=== PATIENT | female | born 1990 | race Caucasian/White ===

== ENCOUNTER → 2018-12-21 | Outpatient (CLI) | payer BC ==
--- NOTE | 2018-12-21 15:00 | Diagnostic Imaging Report ---
US NON OB PELVIS COMP/TRANSVAG TECHNIQUE: Transabdominal and transvaginal grayscale, color Doppler and pulse duplex imaging of the pelvis was performed. INDICATION: Secondary to oligomenorrhea. FINDINGS: The uterus measures 6.0 x 3.7 x 3.1. The myometrium is normal in echogenicity without discrete mass. The endometrium measures up to 0.7 cm where visualized, and is normal in echogenicity. The right ovary measures 3.6 x 3.3 x 1.7 cm. The left ovary measures 3.0 x 2.5 x 3.8 cm. Both ovaries have numerous peripheral based simple follicles. Blood flow is seen in both ovaries on color doppler imaging. No suspicious adnexal mass or fluid collection. No free pelvic fluid. IMPRESSION: 1. Ovaries are normal in size with numerous peripheral based simple follicles but can be seen with polycystic ovarian syndrome, in the appropriate clinical setting. Dictated by: Dictated on workstation # [id number]
== END ==
LOC: RAD 10:38
PROVIDERS: ATTEND Obstetrics & Gynecology
DX: N91.4 Secondary oligomenorrhea (principal); L68.0 Hirsutism; Z68.35 Body mass index [BMI] 35.0-35.9, adult
CPT/HCPCS: 76830; 76856

== ENCOUNTER → 2019-10-24 | Outpatient (CLI) | payer BC ==
--- NOTE | 2019-10-24 11:28 | Diagnostic Imaging Report ---
INDICATION: . TECHNIQUE: Multiple real-time grayscale images were obtained over the gravid uterus. COMPARISON: There are no prior studies available for comparison. FINDINGS: There is a single live fetus in transverse presentation with the head on maternal right. heart motion was noted and a rate of 153 BPM was recorded. There are no abnormalities identified. However the four-chamber heart view, the bladder and the nose and lips were not well imaged due to lie. The growth parameters are fairly uniform. The placenta is posterior and there is no previa. The amniotic fluid volume is within normal limits. Biometrical measurements are as follows: Biparietal 4.51 cm, age 19 weeks 5 days. Head circumference 17.17 cm, age 19 weeks 6 days. Abdominal circumference 13.74 cm, age 19 weeks 2 days. Femur length 3.10 cm, age 19 weeks 5 days. Sonographic estimate age: 19 weeks 5 days. Sonographic estimated date of delivery: 03/14/2020. Estimated Weight: 292 gm (+/- 43 gm). LMP percentile: 17%. heart rate: 153 beats per minute. number: 1 of 1. IMPRESSION: 1. There is a single live fetus of approximately 19 weeks 5 days gestation +/- 1.5 weeks. The EDC is March 14, 2020. 2. There were no abnormalities identified. However, the four-chamber heart view, the nose and lips and bladder were not well imaged. A short-term (4 to 6 week) follow-up exam would be recommended for further study. 3. The growth parameters are fairly uniform. Dictated by: Dictated on workstation # [id number]
== END ==
LOC: RAD 09:40
PROVIDERS: ATTEND Obstetrics & Gynecology
DX: Z36.9 Encounter for antenatal screening, unspecified (principal); Z3A.19 19 weeks gestation of pregnancy
CPT/HCPCS: 76805

== ENCOUNTER → 2020-02-13 | Outpatient (CLI) | payer BC ==
--- NOTE | 2020-02-13 18:14 | Diagnostic Imaging Report ---
INDICATION: Abnormal quad screen. biophysical profile performed in the routine fashion. Fetus scored 2 out of 2 on breathing, body movement, posture, and amniotic fluid volume. Amniotic fluid index was 16.8 cm. Cervical length was 3.6 cm. heart rate was 155 bpm. Four-chamber heart view appeared normal. Urinary bladder appeared unremarkable. IMPRESSION: biophysical profile score 8 out of 8. Dictated by: Dictated on workstation # [id number]
== END ==
LOC: RAD 08:39
PROVIDERS: ATTEND Obstetrics & Gynecology
DX: O28.0 Abnormal hematological finding on antenatal screening of mother (principal)
CPT/HCPCS: 76819

== ENCOUNTER 2020-03-02 15:16 | Outpatient (RCR) | payer BC ==
[~2020-03-02] VITALS: Ht 160 cm; Wt 90.9 kg
[2020-03-02] MEDS ORDERED: PREN1TAB79 PO (15:22)
== END 2020-03-02 15:32 | disposition home or self-care (01) ==
LOC: PREOP 15:16
PROVIDERS: ATTEND Obstetrics & Gynecology
DX: Z01.818 Encounter for other preprocedural examination (principal)

== ENCOUNTER → 2020-03-03 | Outpatient (CLI) | payer BC ==
[~2020-03-03] MED LIST: PREN1TAB79 PO
== END ==
LOC: LAB FS 09:56
PROVIDERS: ATTEND Obstetrics & Gynecology
DX: Z01.812 Encounter for preprocedural laboratory examination (principal); Z20.828 Contact with and (suspected) exposure to other viral communicable diseases
CPT/HCPCS: 87635

== ENCOUNTER 2020-03-13 18:07 | Outpatient (CLI) | payer BC ==
--- NOTE | 2020-03-13 18:05 | NUR ---
ANAHI BRAND presented to unit via ambulation from ED,accompanied by , with c/o ctx's since 1300. Pt. weighed, gowned, voided, and to bed. EFHM and TOCO applied, VS taken. Pt. oriented to bed controls, call light, TV, heat, and A/C controls.
[2020-03-13 18:20] VITALS: BP 121/60
[2020-03-13 18:33] VITALS: BP 121/60
[2020-03-13 18:34] LABS: BILIRUBIN,URINE NEGATIVE (NEGATIVE); CLARITY,URINE SL CLOUDY; COLOR,URINE YELLOW; GLUCOSE, URINE (UA) NEGATIVE (NEGATIVE); KETONES,URINE NEGATIVE (NEGATIVE); LEUKOCYTE ESTERASE ,URINE NEGATIVE (NEGATIVE); NITRITE,URINE NEGATIVE (NEGATIVE); PROTEIN,URINE NEGATIVE (NEGATIVE)
[2020-03-13 18:49] LABS: BACTERIA,URINE FEW /HPF; RBC,URINE RARE /HPF; WBC,URINE 0-2 /HPF
--- NOTE | 2020-03-13 19:23 | NUR ---
DR. RAMOS NOTIFIED OF PT'S ARRIVAL, @ 40.[address] SWIFT, C/O CTXS, SVE X2, REVIEW OF STRIP, VSS, UA RESULTS, IOL SCHEDULED FOR MONDAY, 03/18. ORDERS RECEIVED TO DISCHARGE HOME.
--- NOTE | 2020-03-13 19:25 | NUR ---
CARES RESUMED BY THIS NURSE.
--- NOTE | 2020-03-13 19:35 | NUR ---
DISCHARGE INSTRUCTIONS DISCUSSED. PT VERBALIZES UNDERSTANDING. SIGNATURE OBTAINED.
--- NOTE | 2020-03-13 19:40 | NUR ---
PT AMB OFF UNIT ACCOMPANIED BY . PT DENIES ANY QUESTIONS OR C/O'S. PT D/C TO HOME IN STABLE CONDITION.
--- NOTE | 2020-03-16 08:43 | Physician Query-Final Dx ---
JESSIE DAVIS 03/16/20 0843: Clinic Account Progress/Dx Physician Query: Please give diagnosis Please include # weeks gestation Date of Service Mar 13, 2020 at 18:07 GIOVANNY RAMOS DO 03/16/20 1340: Clinic Account Progress/Dx Physician Query: Please give diagnosis DIAGNOSIS: Diagnosis Intrauterine at 40 1/7 weeks with the onset of contractions JESSIE DAVIS Mar 16, 2020 08:43 GIOVANNY RAMOS DO Mar 16, 2020 13:40
== END 2020-03-13 19:40 | disposition home or self-care (01) ==
LOC: WSo 18:07 → LDRP 18:07 → WSo 19:40
PROVIDERS: ATTEND Obstetrics & Gynecology
DX: O75.89 Other specified complications of labor and delivery (principal); Z3A.40 40 weeks gestation of pregnancy
CPT/HCPCS: 81000; 87088; 99213

== ENCOUNTER 2020-03-15 07:27 | Outpatient (CLI) | payer BC ==
[~2020-03-15] VITALS: Ht 160 cm; Wt 94.8 kg
--- NOTE | 2020-03-15 07:28 | NUR ---
Arrived to unit ambulates self from ED dept. Accompanied by . Pt c/o contractions every 3-5min. Wt obtained and to room 320. Gowned and urine sample obtained. To bed and monitors on. Oriented to room, call light and surroundings. plan of care reviewed with pt.
[2020-03-15 07:46] VITALS: BP 117/69
[2020-03-15 07:49] VITALS: BP 117/69
--- NOTE | 2020-03-15 08:23 | NUR ---
pt requests up to ambulate in halls. monitors off at this time.
--- NOTE | 2020-03-15 09:00 | NUR ---
Back to bed and monitors resumed. sve.
[2020-03-15 09:05] VITALS: BP 120/70
--- NOTE | 2020-03-15 09:08 | NUR ---
Plan of care reviewed with pt and . monitors off and pt up to get dressed.
--- NOTE | 2020-03-15 09:08 | NUR ---
Dr Sifuentes notified of pt arrival, gestation, contractions, sve's, fhr pattern reactive. new orders for discharge received.
[2020-03-15 09:20] VITALS: BP 117/69
--- NOTE | 2020-03-15 09:20 | NUR ---
Discharge instructions explained, signed and copy to patient. pt verbalized understanding of instructions and questions answered. water bottle refilled for pt.
--- NOTE | 2020-03-15 09:27 | NUR ---
Discharged to home. Ambulates self off unit accompanied by with belongings in hand to private vehicle
--- NOTE | 2020-03-16 08:50 | Physician Query-Final Dx ---
JESSIE DAVIS 03/16/20 0850: Clinic Account Progress/Dx Physician Query: Please give diagnosis Please include # weeks gestation Date of Service Mar 15, 2020 at 07:27 GIOVANNY RAMOS DO 03/16/20 1341: Clinic Account Progress/Dx Physician Query: Please give diagnosis DIAGNOSIS: Diagnosis Intrauterine at 40 1/7 weeks with the onset of contractions JESSIE DAVIS Mar 16, 2020 08:50 GIOVANNY RAMOS DO Mar 16, 2020 13:41
== END 2020-03-15 09:27 | disposition home or self-care (01) ==
LOC: WSo 07:27 → LDRP 07:27 → WSo 09:27
PROVIDERS: ATTEND Obstetrics & Gynecology
DX: O62.9 Abnormality of forces of labor, unspecified (principal); Z3A.40 40 weeks gestation of pregnancy
CPT/HCPCS: 99214

== ENCOUNTER 2020-03-15 19:24 | Inpatient (IN) | payer BC ==
[~2020-03-15] VITALS: Ht 160 cm; Wt 94.8 kg
--- NOTE | 2020-03-15 19:29 | NUR ---
ANAHI BRAND presented to unit via from ED, accompanied by , with c/o ruptured membranes. ANAHI BRAND weighed, gowned, voided, and to bed. EFHM and TOCO applied, VS taken. ANAHI BRAND oriented to bed controls, call light, TV, heat, and A/C controls.
[2020-03-15 19:42] VITALS: BP 136/71
[2020-03-15 19:52] VITALS: BP 136/81
--- NOTE | 2020-03-15 20:59 | NUR ---
Dr. Sifuentes called with report of patient. Contractions, FHT's, and SVE reviewed. states that pt may walk the hallways, and be rechecked in 1hr. If no cervical change, pt may go home.
[2020-03-15] MEDS ORDERED: D5 LR IV SOLUTION 1,000 ML IV SCH (22:22)
[2020-03-15] MEDS ORDERED: MINERAL OIL CONCENTRATE 99.9% 15 ML UDC TOP PRN (22:30)
--- OUTSIDE RECORDS SUMMARY | 2020-03-15 23:21 | XMS REPORT | Continuity of Care Document ---
Author Organization Unknown Address Unknown Phone Unavailable Allergies Active Description Code Type Severity Reaction Onset Reported/Identified Relationship to Patient Clinical Status Yes Sulfa (Sulfonamide Antibiotics) G26032 [id number] Drug Allergy Severe ANAPHYLAXIS 03/02/2020 Medications There is no data. Problems Date Dx Coded Attending Type Code Diagnosis Diagnosed By 08/10/1531 MEAGAN TESFAYE CIARA S Ot Z01.818 ENCOUNTER FOR OTHER PREPROCEDURAL EXAMIN 12/24/2018 MARLINEECH CIARA TESFAYE S Ot L68.0 HIRSUTISM 12/24/2018 FENECH DO CIARA S Ot N91.4 SECONDARY OLIGOMENORRHEA 12/24/2018 FENECH DO CIARA S Ot Z68.35 BODY MASS INDEX (BMI) 35.0-35.9, ADULT 01/02/2019 FENECH DO CIARA S Ot L68.0 HIRSUTISM 01/02/2019 FENECH DO, CIARA S Ot N91.4 SECONDARY OLIGOMENORRHEA 01/02/2019 FENECH DO, CIARA S Ot Z68.35 BODY MASS INDEX (BMI) 35.0-35.9, ADULT 10/25/2019 FENECH DO CIARA S Ot Z36.9 ENCOUNTER FOR SCREENING, UNSPE 10/25/2019 FENECH DO CIARA S Ot Z3A.19 19 WEEKS GESTATION OF 10/25/2019 FENECH DO CIARA S Ot Z36.9 ENCOUNTER FOR SCREENING, UNSPE 10/25/2019 FENECH DO, CIARA S Ot Z3A.19 19 WEEKS GESTATION OF 11/07/2019 FENECH DO, CIARA S Ot Z36.9 ENCOUNTER FOR SCREENING, UNSPE 11/07/2019 FENECH DO CIARA S Ot Z3A.19 19 WEEKS GESTATION OF 02/13/2020 FENECH DO, CIARA S Ot L68.0 HIRSUTISM 02/13/2020 FENECH DO CIARA S Ot N91.4 SECONDARY OLIGOMENORRHEA 02/13/2020 FENECH DO CIARA S Ot Z68.35 BODY MASS INDEX (BMI) 35.0-35.9, ADULT 02/13/2020 CIARA RHODES DO Ot Z36.9 ENCOUNTER FOR SCREENING, UNSPE 02/13/2020 CIARA RHODES DO Ot Z3A.19 19 WEEKS GESTATION OF 02/17/2020 CIARA RHODES DO Ot O28.0 ABNORMAL HEMATOLOG FINDING ON 03/04/2020 CIARA RHODES DO Ot Z01.812 ENCOUNTER FOR PREPROCEDURAL LABORATORY E 03/04/2020 CIARA RHODES DO Ot Z20.828 CONTACT W AND EXPOSURE TO OTH VIRAL COMM Procedures There is no data. Results Test Result Range LIPID PANEL - 04/10/19 11:50 CHOLESTEROL, TOTAL 170 mg/dL <200 HDL CHOLESTEROL 64 mg/dL >50 TRIGLYCERIDES 117 mg/dL <150 LDL-CHOLESTEROL 85 mg/dL (calc) NRG CHOL/HDLC RATIO 2.7 (calc) <5.0 NON HDL CHOLESTEROL 106 mg/dL (calc) <13 0 GLUCOSE, SERUM - 04/10/19 11:50 GLUCOSE 78 mg/dL 65-99 Coronavirus SARS-CoV-2 SO 2019 - 0 10:03 Coronavirus Ab [Units/volume] in Serum Negative Negative Complete urinalysis with reflex to cultu re - 03/13/20 18:10 Urine color determination YELLOW NRG Urine clarity determination SL CLOUDY N RG Urine pH measurement by test strip 7.0 5-9 Specific gravity of urine by test strip 1.010 1.016-1.022 Urine protein assay by test strip, semi-quantitative NEGATIVE NEGATIVE Urine glucose detection by automated test strip NE GATIVE NEGATIVE Erythrocytes detection in urine sediment by light micr oscopy NEGATIVE NEGATIVE Urine ketones detection by automated test strip NE GATIVE NEGATIVE Urine nitrite detection by test strip NEGATIVE NEGATIVE Urine total bilirubin detection by test strip NEGA TIVE NEGATIVE Urine urobilinogen measurement by automated test strip (mass/volume) 0.2 mg/dL < = 1.0 Urine leukocyte esterase detection by dipstick NEG ATIVE NEGATIVE Automated urine sediment erythrocyte cou nt by microscopy (number/high power field) RARE NRG Automated urine sediment leukocyte count by microscopy (number/high power field) [HPF] NRG Bacteria detection in urine sediment by light microsco py FEW NRG Squamous epithelial cells detection in u rine sediment by light microscopy 10-25 NRG Crystals detection in urine sediment by light microsco py NONE NRG Casts detection in urine sediment by light microscopy NONE NRG Mucus detection in urine sediment by light microscopy NEGATIVE NRG Complete urinalysis with reflex to culture NO NRG Encounters ACCT No. Visit Date/Time Discharge Status Pt. Type Provider Facility Loc./Unit Complaint [id number] 04/25/2019 08:45:00 04/25/2019 23:59: 59 [id number] 04/10/2019 10:30:00 Document Registration [id number] 03/13/2020 18:07:00 19:40:00 DIS Outpatient SEALS GIOVANNY TESFAYE [facility] CONTRACTIONS [id number] 03/06/2020 07:30:00 23:59:59 CLS Preadmit FENECH DOCIARA S BREECH [id number] 03/03/2020 09:56:00 23:59:59 CLS Outpatient FENECH DO CIARA S [facility] LAB FS PRE REQ [id number] 03/02/2020 15:16:00 15:32:00 DIS Outpatient FENECH DO CIARA S [facility] PREOP BREECH [id number] 02/13/2020 08:39:00 23:59:59 CLS Outpatient FENECH DO CIARA S [facility] RAD ABN QUAD SCREEN [id number] 10/24/2019 09:40:00 23:59:59 CLS Outpatient FENECH DO, CIARA S [facility] RAD ,ANATOMY SCAN [id number] 12/21/2018 10:38:00 23:59:59 CLS Outpatient FENECH DO CIARA S [facility] RAD SECONDARY ILIGOMENORRH EA [id number] 03/18/2020 19:00:00 P EN Preadmit FENECH DO CIARA S INDUCTION
[2020-03-15 23:28] LABS: BASOPHILS % (AUTO) 0 % (0-10); EOSINOPHILS % (AUTO) 0 % (0-10); HEMATOCRIT 41 % (35-52); HEMOGLOBIN 14.3 G/DL (11.5-16.0); LYMPHOCYTES # (AUTO) 2.3 X 10^3 (1.0-4.0); LYMPHOCYTES % (AUTO) 14 % (12-44); MEAN CORPUSCULAR HEMOGLOBIN 31 PG (25-34); MEAN CORPUSCULAR HGB CONC 35 G/DL (32-36); MEAN CORPUSCULAR VOLUME 87 FL (80-99); MEAN PLATELET VOLUME 10.8 FL (7.4-10.4); MONOCYTES % (AUTO) 6 % (0-12); NEUTROPHILS # (AUTO) 13.3 X 10^3 (1.8-7.8); NEUTROPHILS % (AUTO) 80 % (42-75); PLATELET COUNT 273 10^3/uL (130-400); RED CELL DISTRIBUTION WIDTH 13.7 % (10.0-14.5); WHITE BLOOD COUNT 16.6 10^3/uL (4.3-11.0)
[2020-03-16] VITALS (17 sets, daily range): BP systolic 100–139; BP diastolic 53–87
[2020-03-16 00:03] LABS: EOSINOPHILS % (MANUAL) 1 %; LYMPHOCYTES % (MANUAL) 12 %; METAMYELOCYTES % 3 %; MONOCYTES % (MANUAL) 4 %; NEUTROPHILS % (MANUAL) 80 %; RBC MORPH NORMAL
[2020-03-16] MEDS ORDERED: CATHETER FLUSH 10 ML SYR IV SCH ×2 (06:00→14:00)
--- NOTE | 2020-03-16 07:30 | History & Physical-OB ---
OB - Chief Complaint & HPI Date/Time Date of Admission: Date of Admission: Mar 15, 2020 at 22:24 Date seen by a Provider: Mar 16, 2020 Time Seen by a Provider: 07:15 Chief Complaint/History OB-Reason for Admission/Chief: Onset of Labor Hx : 1 Hx Para: 0 Expected Date of Delivery: Mar 12, 2020 Gestational Age in Weeks: 40 Gestational Age in Days: 3 Admission Nurse Assessment Rev: Yes Allergies and Home Medications Allergies Coded Allergies: Sulfa (Sulfonamide Antibiotics) (Verified Allergy, Severe, ANAPHYLAXIS, 03/02/20) Home Medications Vit W-Ca,Fe,FA(<1 mg) 1 Each Tablet, 1 EACH PO DAILY, (Reported) Patient Home Medication List Home Medication List Reviewed: Yes OB - History Hx of Present Care: Yes Ultrasounds: Normal mid trimester US Obstetrical Complications: Other (Abnormal FFC DNA increased risk for XXY) Medical Complications: None Obstetrical History Hx : 1 Hx Para: 0 Delivery History Adverse Rxn to Tranfusion: No (N/A) Patient Past Medical History n/a Social History/Family History HIV/AIDS: No Recent Infectious Disease Expo: No Sexually Transmitted Disease: No Alcohol Use: Denies Use Recreational Drug Use: No 2nd Hand Smoke Exposure: No OB - Admission Exam Physical Exam Vitals: Vital Signs 03/15/20 03/16/20 19:52 06:30 Temp 36.8 Pulse 84 Resp 18 B/P (MAP) 139/78 (98) Pulse Ox 99 O2 Delivery Room Air HEENT: NCAT Heart: Rhythm Normal Lungs: Clear Abdomen: Gravid Extremities: Normal Reflexes: Normal Cervical Dilatation: 8cm Effacement: 75% Station: -1 Membranes: Ruptured Amniotic Fluid: Clear Heart Rate: 130's Accelerations: Accelerations Present Decelerations: No Decelerations Short Term Variability: Present Care Home Variability: Average (6-25) Contractions on Admission: < 5 Minutes Apart Intensity: Firm Labs Laboratory Tests Test 03/15/20 23:00 Range/Units White Blood Count 16.6 H 4.3-11.0 10^3/uL Red Blood Count 4.69 4.35-5.85 10^6/uL Hemoglobin 14.3 11.5-16.0 G/DL Hematocrit 41 35-52 % Mean Corpuscular Volume 87 80-99 FL Mean Corpuscular Hemoglobin 31 25-34 PG Mean Corpuscular Hemoglobin Concent 35 32-36 G/DL Red Cell Distribution Width 13.7 10.0-14.5 % Platelet Count 273 130-400 10^3/uL Mean Platelet Volume 10.8 H 7.4-10.4 FL Neutrophils (%) (Auto) 80 H 42-75 % Lymphocytes (%) (Auto) 14 12-44 % Monocytes (%) (Auto) 6 0-12 % Eosinophils (%) (Auto) 0 0-10 % Basophils (%) (Auto) 0 0-10 % Neutrophils # (Auto) 13.3 H 1.8-7.8 X 10^3 Lymphocytes # (Auto) 2.3 1.0-4.0 X 10^3 Monocytes # (Auto) 1.0 0.0-1.0 X 10^3 Eosinophils # (Auto) 0.0 0.0-0.3 10^3/uL Basophils # (Auto) 0.0 0.0-0.1 10^3/uL Neutrophils % (Manual) 80 % Lymphocytes % (Manual) 12 % Monocytes % (Manual) 4 % Eosinophils % (Manual) 1 % Metamyelocytes % 3 % Blood Morphology Comment NORMAL OB - Assessment/Plan/Diagnosis Assessment Assessment: active labor Admission Dx 29 yo @ 40 weeks Increased risk for XXY on C DNA testing GBS neg Admission Status: Inpatient Order (span 2 midnights) Reason for Inpatient Admission: 40 week IUP in active labor Plan Plan: Expectant Management CIARA RHODES DO Mar 16, 2020 07:30
[2020-03-16] MEDS ORDERED: OXYTOCIN PRE-MIX DRIP 500 ML IV ONE (08:56)
[2020-03-16] MEDS ORDERED: LIDOCAINE/EPI 2% 1:200,00 (XYLOCAINE) 10 ML VIAL ONE (08:57)
[2020-03-16] MEDS ORDERED: LIDOCAINE/EPI 2% 1:200,00 (XYLOCAINE) 20 ML VIAL INJ ONE (11:32)
[2020-03-16] MEDS: OXYTOCIN PRE-MIX DRIP 500 ML IV SCH ×2 (11:55→12:31)
--- NOTE | 2020-03-16 12:14 | OB Labor & Delivery Record ---
L&D History Date of Service Date of Service: Mar 16, 2020 History Expected Date of Delivery: Mar 12, 2020 Gestational Age in Weeks: 40 Hx : 1 Hx Para: 0 Complications Events: Routine care Increased risk for XXY on FFC DNA Operative Indications (Cesarea: N/A-Vaginal Delivery Intrapartal Events: None L&D Stage1 Stage One Onset of Labor - Date: Mar 16, 2020 Monitors and Tracing Monitor Mode: External Heart Rate: 130 Monitor Accelerations: Uniform Monitor Decelerations: None Station: 0 Rfid Developer Variability: Average (6-10) Short Term Variability: Present Presentation: Vertex Vital Signs VS - Last 72 Hours, by Label 03/15/20 03/15/20 03/16/20 03/16/20 19:42 19:52 00:00 02:37 Temp 37.1 37.1 36.5 Pulse 83 88 69 Resp 20 20 18 B/P (MAP) 115/77 (90) Pulse Ox 99 99 O2 Delivery Room Air Room Air 03/16/20 03/16/20 03/16/20 03/16/20 06:30 07:40 08:56 10:08 Temp 36.8 36.8 36.5 Pulse 84 83 82 72 Resp 18 18 18 18 B/P (MAP) 139/78 (98) 132/74 (93) 110/62 (78) 125/60 (81) Pulse Ox 97 O2 Delivery Room Air Room Air Room Air Rupture of Membranes Spontaneous Ruture of Membrane: Yes Amniotic Membrane Rupture Time: 0934 Amniotic Membrane Fluid Desc.: Clear Vaginal Bleeding Description: Normal Show Progress/Notes Patient admitted last night in active labor, she requested no augmentation of labor whatsoever. She was progressed to complete and +1 station with no interventions. L&D Stage2 Stage Two Stage II Date: Mar 16, 2020 Monitors and Tracing Monitor Mode: External Heart Rate: 130 Monitor Accelerations: Uniform Monitor Decelerations: Variable Shelter Variability: Average (6-10) Short Term Variability: Present Position: Right Occiput Anterior Presentation: Vertex Cord Descript/Complications Cord Vessel Description: 3 Vessels Complications nuchal cord reduced x 1 Delivery Type Delivery Method: Spontaneous Vaginal Anterior Shoulder: Left Episiotomy/Perineal Laceration Episiotomy Description: Midline Degree (describe repair) midline episiotomy repaired using 3-0 and 2-0 vicryl suture in usual fashion Condition of Delivery 1 minute Comment: 8 5 minute Comment: 9 Notes Live male weight pending, baby to mothers chest Condition of Condition of : Living Exam: No Observed Abnormalities Resuscitation Resuscitation: N/A - Spontaneous Resp L&D Stage3 Stage Three Stage III Date: Mar 16, 2020 Pictocin Pitocin Administration Comment: 30 mu wide open Placenta Delivery Placenta Delivery: Spontaneous Delivery Summary Summary Estimated blood loss (mL): 400 Attending at delivery: Ciara Rhodes DO Condition of Delivery Examined: Cervix Examined, Uterus Explored Post Hemorrhage: No Condition of Mother stable Condition of (s) stable CIARA RHODES DO Mar 16, 2020 12:14
[2020-03-16] MEDS ORDERED: MEASLES,MUMPS,RUBELLA 1 EA INJ SQ ONE (12:15)
[2020-03-16] MEDS ORDERED: WITCH HAZEL(TUCKS) 40 EA JAR TOP PRN (12:15)
[2020-03-16] MEDS ORDERED: DIBUCAINE (NUPERCAINAL) 1% OINT 30 GM TOP PRN (12:15)
[2020-03-16] MEDS ORDERED: BENZOCAINE/MENTHOL (DERMOPLAST) 60 ML CAN TP PRN (12:15)
[2020-03-16] MEDS ORDERED: TETANUS,DIPTH,PERTUSS P/F (BOOSTRIX) 0.5 ML VIAL IM ONE (12:15)
--- NOTE | 2020-03-16 12:30 | NUR ---
TO ROOM TO ASSIST WITH . FUNDUS MASSAGED TO FIRM AT U/2. VAG FLOW LT/MOD RUBRA. BLADDER FILLING. INFANT LATCHED ON WELL. SEE NOTES. SPOUSE AT BEDSIDE.
--- NOTE | 2020-03-16 12:45 | NUR ---
FF U/2. VAG FLOW LT/MOD LEROYRA. CONTINUES TO CARE FOR INFANT IN ROOM. LUNCH TRAYS TO ROOM.
--- NOTE | 2020-03-16 13:15 | NUR ---
UP TO THE BATHROOM. UNABLE TO VOID. PERICARE PERFORMED WITH DERMAPLAST SPRAY, TUCKS, AND NUPERCAINAL TO PERINEUM. BACK TO BED WITHOUT PROBLEMS. MOVES WELL. FF U/1. VAG FLOW LT/MOD RUBRA.
--- NOTE | 2020-03-16 13:45 | NUR ---
CONTINUES TO CARE FOR . INFORMED OF NEED FOR STAFF TO ASSIST TO THE BATHROOM WHEN READY AGAIN TO TRY. STATES UNDERSTANDING. FF U/0. VAG FLOW LT/MOD RUBRA. BLADDER FILLING.
--- NOTE | 2020-03-16 14:00 | NUR ---
PT PLACED TURNSTILE ATTENDANT LIGHT. STANDING AT THE BEDSIDE IN PUDDLE OF URINE. STATES SHE WAITED TO LONG. ASSISTED TO BATHROOM. GOWN CHANGE, PERICARE WITH PAD/UNDERWEAR CHANGE. WILL TRANSFER TO PP ROOM. FF U/2. VAG FLOW LT/MOD RUBRA.
--- NOTE | 2020-03-16 14:15 | NUR ---
TRANSFERRED TO ROOM 310 VIA W/C IN STABLE CONDITION ACC BY YUDY MARTINEZ RN AND SPOUSE PUSHING INFANT IN CRIB. ASSISTED TO BED. ORIENTED TO SURROUNDINGS, CALL LIGHT OPERATION, DIETARY NUMBER AND MENU, AND INFORMATION PAPERS. FF U/2. VAG FLOW LT/MOD RUBRA. ICE PACK IN PLACE. PT STATES UNDERSTANDING OF DERMAPLAST SPRAY, TUCKS, AND NUPERCAINAL OINTMENT. PERINEUM SWOLLEN WITH HEMORRHOIDS NOTED.
--- NOTE | 2020-03-16 16:30 | NUR ---
INFANT. VSS. STATES HAS BEEN UP TO THE BATHROOM TO VOID AGAIN WITH ONLY LIGHT FLOW. FF U/2.
--- NOTE | 2020-03-16 17:47 | NUR ---
RESTING IN BED. INFANT SKIN TO SKIN WITH DAD. PT STATES TRYING TO REST. DENIES ANY WANTS OR NEEDS. FF U/2. VAG FLOW LT/MOD RUBRA.
--- NOTE | 2020-03-16 18:30 | NUR ---
PT ANS SPOUSE HAS NOT EATEN THEIR FOOD YET. STATES TRYING TO REST FOR AWHILE.
[2020-03-16] MEDS ORDERED: DOCUSATE SODIUM 100 MG (COLACE) CAP PO SCH (21:00)
[2020-03-17 00:30] VITALS: BP 114/68
[2020-03-17 05:03] VITALS: BP 107/56
[2020-03-17 05:21] LABS: BASOPHILS % (AUTO) 0 % (0-10); EOSINOPHILS % (AUTO) 0 % (0-10); HEMATOCRIT 33 % (35-52); HEMOGLOBIN 11.3 G/DL (11.5-16.0); LYMPHOCYTES # (AUTO) 2.8 X 10^3 (1.0-4.0); LYMPHOCYTES % (AUTO) 15 % (12-44); MEAN CORPUSCULAR HEMOGLOBIN 30 PG (25-34); MEAN CORPUSCULAR HGB CONC 34 G/DL (32-36); MEAN CORPUSCULAR VOLUME 87 FL (80-99); MEAN PLATELET VOLUME 10.7 FL (7.4-10.4); MONOCYTES # (AUTO) 1.3 X 10^3 (0.0-1.0); MONOCYTES % (AUTO) 7 % (0-12); NEUTROPHILS # (AUTO) 14.6 X 10^3 (1.8-7.8); NEUTROPHILS % (AUTO) 78 % (42-75); PLATELET COUNT 254 10^3/uL (130-400); RED CELL DISTRIBUTION WIDTH 13.9 % (10.0-14.5); WHITE BLOOD COUNT 18.7 10^3/uL (4.3-11.0)
[2020-03-17] MEDS ORDERED: PRENATAL VITAMIN 1 EA TAB PO SCH (07:00)
[2020-03-17] MEDS ORDERED: IBUP-1773 PO (07:59)
[2020-03-17] MEDS ORDERED: BENZ78AE2 TP (07:59)
[2020-03-17] MEDS ORDERED: DCS100C PO (07:59)
--- NOTE | 2020-03-17 08:01 | Discharge Inst-Women's Service ---
Discharge Inst-Women's Serv Depart Medication/Instructions New, Converted or Re-Newed RX: RX on Chart Final Diagnosis PPD 1 NVD Problems Reviewed?: Yes Consults/Follow Up Additional Follow Up: Yes Orders/Referrals Dr. Rhodes in 6 weeks Activity Activity: Activity as Tolerated Driving Instructions: No Driving for 1 Week NO SMOKING: NO SMOKING Nothing Inside Vagina: No Douching, No New Site, No Tampons Diet Discharge Diet: No Restrictions Symptoms to Report to : Bleeding Excessive, Pain Increased, Fever Over 101 Degrees F, Vaginal Bleeding Increase, Questions/Concerns For Any Problems or Questions: Contact Your Physician CIARA RHODES DO Mar 17, 2020 08:01
--- NOTE | 2020-03-17 08:03 | Postpartum Progress Note ---
Note Note Day # 1 Subjective: Patient is without complaints. Ambulating, voiding. Tolerating a regular diet without nausea or vomiting. Normal lochia. Pain is well controlled with oral pain medications. [] feeding. [] Objective: Physical Exam: General - Alert and oriented, no apparent distress Abdomen - Soft, appropriately tender to palpation, non-distended, fundus firm at umbilicus Extremities - no edema, negative Yuniel's bilaterally Assessment: PPD 1 NVD Plan: Routine care. Encourage breast feeding. Encourage ambulation. Ferrous sulfate supplementation. Plan for discharge today Vitals - Labs Vital Signs - I&O Vital Signs Date Time Temp Pulse Resp B/P (MAP) Pulse Ox O2 Delivery O2 Flow Rate FiO2 03/17/20 05:03 36.7 75 18 107/56 (73) 97 Room Air 03/17/20 00:30 37.1 100 18 114/68 (83) 97 Room Air 03/16/20 20:35 37.0 103 18 120/59 (79) 97 Room Air 03/16/20 16:30 37.1 93 18 110/53 (72) 97 Room Air 03/16/20 14:10 37.1 76 18 122/66 (84) Room Air 03/16/20 13:20 76 18 134/70 (91) Room Air 03/16/20 13:00 85 18 123/55 (77) Room Air 03/16/20 12:30 37.2 90 18 105/63 (77) Room Air 03/16/20 12:08 81 18 132/73 (92) Room Air 03/16/20 11:55 103 18 122/70 (87) 97 Room Air 03/16/20 11:38 84 18 139/72 (94) Non Rebreather 15.00 03/16/20 11:25 Non Rebreather 15.00 03/16/20 11:08 84 18 133/87 (102) Room Air 03/16/20 11:00 36.3 80 18 100/64 (76) Room Air 03/16/20 10:27 82 18 120/67 (84) Room Air 03/16/20 10:08 72 18 125/60 (81) Room Air 03/16/20 08:56 36.5 82 18 110/62 (78) Room Air I & O 03/17/20 07:00 Intake Total 1000 ml Balance 1000 ml Labs Laboratory Tests 03/17/20 04:54: White Blood Count 18.7H, Red Blood Count 3.80L, Hemoglobin 11.3#L, Hematocrit 33L, Mean Corpuscular Volume 87, Mean Corpuscular Hemoglobin 30, Mean Corpuscular Hemoglobin Concent 34, Red Cell Distribution Width 13.9, Platelet Count 254, Mean Platelet Volume 10.7H, Neutrophils (%) (Auto) 78H, Lymphocytes (%) (Auto) 15, Monocytes (%) (Auto) 7, Eosinophils (%) (Auto) 0, Basophils (%) (Auto) 0, Neutrophils # (Auto) 14.6H, Lymphocytes # (Auto) 2.8, Monocytes # (Auto) 1.3H, Eosinophils # (Auto) 0.0, Basophils # (Auto) 0.0 CIARA RHODES DO Mar 17, 2020 08:03
[2020-03-17 08:15] VITALS: BP 107/66
== END 2020-03-17 12:00 | disposition home or self-care (01) | DRG 807 ==
LOC: WSo 19:24 → LDRP 19:24 → WSo 22:24 → LDRP 03-16 14:15
PROVIDERS: ADMIT Obstetrics & Gynecology; ATTEND Obstetrics & Gynecology
PROC: 10E0XZZ Delivery of Products of Conception, External Approach (ICD-10-PCS; principal; 2020-03-16)
PROC: 0W8NXZZ Division of Female Perineum, External Approach (ICD-10-PCS; 2020-03-16)
DX: O70.9 Perineal laceration during delivery, unspecified (principal); Z37.0 Single live birth; Z3A.40 40 weeks gestation of pregnancy
CPT/HCPCS: 36415; 85007; 85025; 85027; 86850; 86900; 86901; 99212